=== PATIENT | male | born 1975 | race Caucasian/White ===

== ENCOUNTER 2025-05-08 17:19 | Inpatient (IN) | payer MEDICAID, OTHER ==
[~2025-05-08] VITALS: Ht 193 cm; Wt 159.1 kg
[~2025-05-08 17:19] MED LIST: BUSP10TA PO; HYDR50TA70 PO; LATU20TA PO; TRAZ-252 PO; ZOLO100T PO
[2025-05-08 18:11] LABS: PLATELET COUNT, AUTOMATED 282 10^3/uL (150-450)
[2025-05-08 18:28] LABS: ETHYL ALCOHOL (ETHANOL) < 0.003 % (0.000-0.010)
[2025-05-08 18:30] LABS: ALT/SGPT 21 U/L (7.0-40); AMPHETAMINES LEVEL URINE NEGATIVE (NEGATIVE); AST/SGOT 20 U/L (<34); BARBITURATES URINE NEGATIVE (NEGATIVE); BENZODIAZEPINES URINE NEGATIVE (NEGATIVE); CALCIUM LEVEL 9.3 MG/DL (8.5-10.1); CARBON DIOXIDE LEVEL 23 MMOL/L (20-31); CHLORIDE LEVEL 107 MMOL/L (98-107); COCAINE METABOLITE URINE NEGATIVE (NEGATIVE); CREATININE FOR GFR 0.96 MG/DL (0.70-1.30); GLOMERULAR FILTRATION RATE > 90.0 (>60); METHADONE URINE NEGATIVE (NEGATIVE); OPIATES URINE NEGATIVE (NEGATIVE); PHENCYCLIDINE URINE NEGATIVE (NEGATIVE); POTASSIUM SERUM 4.2 MMOL/L (3.5-5.1); SALICYLATE LEVEL < 3.0 MG/DL (<30); SODIUM LEVEL 142 MMOL/L (136-145)
[2025-05-08 18:43] LABS: CANNABINOIDS URINE POSITIVE (NEGATIVE)
[2025-05-08] MEDS ORDERED: BUSP10TA79 PO (21:08)
[2025-05-08] MEDS ORDERED: ZOLO100T PO (21:08)
[2025-05-08] MEDS ORDERED: HYDR50TA70 PO (21:08)
[2025-05-08] MEDS ORDERED: TRAZ-252 PO (21:08)
[2025-05-08] MEDS ORDERED: HOME MED LIST COMPLETE! XX SCH (21:10)
[2025-05-08] MEDS ORDERED: traZODone 50 MG TAB PO PRN (21:30)
[2025-05-08] MEDS ORDERED: MOM 30 ML SUSPENSION UDC PO PRN (21:30)
[2025-05-08] MEDS ORDERED: ACETAMINOPHEN 325 MG TAB PO PRN (21:30)
[2025-05-08] MEDS ORDERED: MAALOX 30 ML SUSP *UDC PO PRN (21:30)
[2025-05-08 23:37] VITALS: BP 134/88; TEMP 98; O2SAT 97
[2025-05-08] MEDS: traZODone 50 MG TAB PO SCH (23:48)
[2025-05-09 06:23] VITALS: BP 137/79; TEMP 97; O2SAT 96
[2025-05-09] MEDS: SERTRALINE HCL 50 MG TAB PO SCH (08:57)
[2025-05-09] MEDS: NICOTINE 21 MG/24 HR 1 EA TRANSDERMAL TD SCH (13:05)
[2025-05-09 15:41] VITALS: BP 125/71; TEMP 97.7; O2SAT 98
[2025-05-10 06:17] VITALS: BP 129/76; TEMP 98.2; O2SAT 94
[2025-05-10 07:34] LABS: CHOLESTEROL LEVEL 192.0 MG/DL (<200); CHOLESTEROL RISK RATIO 4.61 (<5); LDL CHOLESTEROL 121.4 MG/DL (<100); NON-HDL-C 150.4 MG/DL; TRIGLYCERIDES LEVEL 145.0 MG/DL (<150)
[2025-05-10 16:00] VITALS: BP 134/78; TEMP 97.8; O2SAT 97
[2025-05-11 06:32] VITALS: BP 128/72; O2SAT 95
[2025-05-11 09:33] VITALS: BP 128/72; TEMP 97.8; O2SAT 95
[2025-05-11] MEDS ORDERED: PILL CUTTER 1 EACH XX PRN (10:00)
[2025-05-11 15:34] VITALS: BP 137/75; TEMP 98.3; O2SAT 97
[2025-05-12 06:22] VITALS: BP 131/74; TEMP 97; O2SAT 94
[2025-05-12] MEDS: SERTRALINE HCL 50 MG TAB PO ONE (09:03)
[2025-05-12 15:53] VITALS: BP 132/71; TEMP 98.1; O2SAT 97
[2025-05-13 06:32] VITALS: BP 115/76; TEMP 97.7; O2SAT 96
[2025-05-13] MEDS: SERTRALINE 100 MG TAB PO SCH (08:19)
[2025-05-13 14:57] VITALS: BP 140/77; TEMP 98.3; O2SAT 98
[2025-05-14 06:34] VITALS: BP 114/70; TEMP 97.3; O2SAT 97
[2025-05-14 15:48] VITALS: BP 143/83; TEMP 97.6; O2SAT 98
[2025-05-15 06:31] VITALS: BP 113/69; TEMP 97; O2SAT 95
[2025-05-15] MEDS: ASCORBIC ACID 500 MG TAB PO SCH (12:57)
[2025-05-15] MEDS: MULTIVITAMINS/MINERALS THERAP 1 TAB PO SCH (12:57)
[2025-05-15 15:13] VITALS: BP 156/79; TEMP 97.6; O2SAT 100
[2025-05-16 06:43] VITALS: BP 111/58; TEMP 97.1; O2SAT 94
[2025-05-16] MEDS: IBUPROFEN 400 MG TAB PO PRN (11:24)
[2025-05-16 15:06] VITALS: BP 123/63; TEMP 98.6; O2SAT 96
[2025-05-17 06:36] VITALS: BP 158/80; TEMP 97.4; O2SAT 99
[2025-05-17 16:23] VITALS: BP 132/74; TEMP 97.2; O2SAT 96
[2025-05-18 06:22] VITALS: BP 129/83; TEMP 97.3; O2SAT 97
[2025-05-18 15:20] VITALS: BP 134/73; TEMP 97.8; O2SAT 99
[2025-05-19 06:42] VITALS: BP 138/90; TEMP 97.7; O2SAT 100
[2025-05-19 15:28] VITALS: BP 140/69; TEMP 98.1; O2SAT 98
[2025-05-20 01:55] VITALS: BP 154/84; TEMP 97.9; O2SAT 99
[2025-05-20 06:31] VITALS: BP 122/79; TEMP 97.4; O2SAT 99
[2025-05-20 15:17] VITALS: BP 140/67; TEMP 98.2; O2SAT 98
[2025-05-21 06:48] VITALS: BP 138/68; TEMP 97.5; O2SAT 97
[2025-05-21 15:00] VITALS: BP 135/78; TEMP 97.9; O2SAT 95
[2025-05-22 06:24] VITALS: BP 148/85; TEMP 97.6; O2SAT 98
[2025-05-22] MEDS ORDERED: BUSP10TA PO (08:48)
[2025-05-22] MEDS ORDERED: HYDR50TA70 PO (08:48)
[2025-05-22] MEDS ORDERED: SERT200C PO (08:48)
[2025-05-22] MEDS ORDERED: ARIP10TA63 PO (08:48)
[2025-05-23] MEDS ORDERED: HYDR50TA70 PO (15:51)
[2025-05-23] MEDS ORDERED: BUSP10TA PO (15:51)
[2025-05-23] MEDS ORDERED: ZOLO100T PO (15:51)
[2025-05-23] MEDS ORDERED: ABIL10TA9 PO (15:51)
== END 2025-05-22 10:15 | disposition home or self-care (01) | DRG 751 ==
LOC: M ED 17:19 → M ED INP 21:30 → M PSY 22:56
PROVIDERS: ADMIT Student in an Organized Health Care Education/Training Program; ATTEND Psychiatry & Neurology Psychiatry
DX: F33.1 Major depressive disorder, recurrent, moderate (principal); R45.851 Suicidal ideations; F41.1 Generalized anxiety disorder; Z56.0 Unemployment, unspecified; Z63.8 Other specified problems related to primary support group; Z81.8 Family history of other mental and behavioral disorders; Z79.899 Other long term (current) drug therapy; E66.9 Obesity, unspecified; Z87.891 Personal history of nicotine dependence

== ENCOUNTER 2025-05-29 11:55 | Inpatient (IN) | payer OTHER, MEDICAID ==
[~2025-05-29] VITALS: Ht 190.5 cm; Wt 176.4 kg
[~2025-05-29 11:55] MED LIST changes: +ABIL10TA9 PO; +ARIP10TA63 PO; +BUSP10TA79 PO; +SERT200C PO
[2025-05-29 12:46] LABS: PLATELET COUNT, AUTOMATED 330 10^3/uL (150-450)
[2025-05-29 13:08] LABS: ETHYL ALCOHOL (ETHANOL) < 0.003 % (0.000-0.010)
[2025-05-29 13:10] LABS: ALT/SGPT 26 U/L (7.0-40); AST/SGOT 19 U/L (<34); CALCIUM LEVEL 9.3 MG/DL (8.5-10.1); CARBON DIOXIDE LEVEL 22 MMOL/L (20-31); CHLORIDE LEVEL 106 MMOL/L (98-107); CREATININE FOR GFR 0.92 MG/DL (0.70-1.30); GLOMERULAR FILTRATION RATE > 90.0 (>60); POTASSIUM SERUM 4.5 MMOL/L (3.5-5.1); SALICYLATE LEVEL < 3.0 MG/DL (<30); SODIUM LEVEL 136 MMOL/L (136-145)
[2025-05-29] MEDS ORDERED: BUSP10TA PO (13:10)
[2025-05-29] MEDS ORDERED: HOME MED LIST COMPLETE! XX SCH (13:10)
[2025-05-29] MEDS ORDERED: ARIP1TAB PO (13:10)
[2025-05-29 13:42] LABS: AMPHETAMINES LEVEL URINE NEGATIVE (NEGATIVE); BARBITURATES URINE NEGATIVE (NEGATIVE); BENZODIAZEPINES URINE NEGATIVE (NEGATIVE); COCAINE METABOLITE URINE NEGATIVE (NEGATIVE); METHADONE URINE NEGATIVE (NEGATIVE); OPIATES URINE NEGATIVE (NEGATIVE)
[2025-05-29 13:43] LABS: PHENCYCLIDINE URINE NEGATIVE (NEGATIVE)
[2025-05-29 13:45] LABS: CANNABINOIDS URINE POSITIVE (NEGATIVE)
[2025-05-29] MEDS ORDERED: HALOPERIDOL 5 MG TAB PO PRN (16:10)
[2025-05-29] MEDS ORDERED: OLANZapine 5 MG TAB PO PRN (16:10)
[2025-05-29] MEDS ORDERED: MOM 30 ML SUSPENSION UDC PO PRN (16:10)
[2025-05-29] MEDS ORDERED: ACETAMINOPHEN 325 MG TAB PO PRN (16:10)
[2025-05-29 17:01] VITALS: BP 153/82; TEMP 97.2; O2SAT 98
[2025-05-29] MEDS: NICOTINE 14 MG/24 HR TRANSDERMAL TD SCH (17:20)
[2025-05-29] MEDS: traZODone 50 MG TAB PO PRN (20:16)
[2025-05-30 06:57] VITALS: BP 132/81; TEMP 97.2; O2SAT 98
[2025-05-30 06:59] VITALS: BP 118/59; TEMP 97.8; O2SAT 98
[2025-05-30] MEDS: SERTRALINE 100 MG TAB PO SCH (08:17)
[2025-05-30] MEDS: buPROPion **XL** 150 MG TABLET PO SCH (14:42)
[2025-05-30] MEDS: NICOTINE 21 MG/24 HR 1 EA TRANSDERMAL TD SCH (14:43)
[2025-05-30 14:54] VITALS: BP 135/64; TEMP 97; O2SAT 98
[2025-05-30] MEDS: traZODone 50 MG TAB PO SCH (20:34)
[2025-05-31 06:26] VITALS: BP 108/56; TEMP 97.8; O2SAT 97
[2025-05-31] MEDS: IBUPROFEN 400 MG TAB PO PRN (14:21)
[2025-05-31] MEDS: VANICREAM MOISTURIZING SKIN CREAM 113GM TUBE TOP SCH (15:13)
[2025-05-31 15:37] VITALS: BP 129/69; TEMP 98.7; O2SAT 97
[2025-06-01 06:47] VITALS: BP 131/75; TEMP 97; O2SAT 96
[2025-06-01 15:31] VITALS: BP 137/73; TEMP 98.2; O2SAT 98
[2025-06-01] MEDS: LORazepam 1 MG TAB PO PRN (20:39)
[2025-06-02 06:46] VITALS: BP 138/77; TEMP 97.5; O2SAT 95
[2025-06-02 15:05] VITALS: BP 136/69; TEMP 98; O2SAT 97
[2025-06-03 06:57] VITALS: BP 128/72; TEMP 97.4; O2SAT 98
[2025-06-03 15:19] VITALS: BP 121/66; TEMP 98.2; O2SAT 98
[2025-06-04 06:26] VITALS: BP 134/85; TEMP 97.3; O2SAT 95
[2025-06-04] MEDS ORDERED: SERTRALINE HCL 50 MG TAB PO ONE (09:20)
[2025-06-04] MEDS: buPROPion **XL** 150 MG TABLET PO SCH (09:27)
[2025-06-04] MEDS: SERTRALINE 100 MG TAB PO SCH (09:27)
[2025-06-04 15:43] VITALS: BP 138/71; TEMP 97.6; O2SAT 96
[2025-06-05 06:26] VITALS: BP 141/81; TEMP 97.7; O2SAT 95
[2025-06-05 19:00] VITALS: BP 144/76; TEMP 97.4; O2SAT 98
[2025-06-06 06:45] VITALS: BP 102/60; TEMP 98; O2SAT 96
[2025-06-06] MEDS: PILL CUTTER 1 EACH XX PRN (08:32)
[2025-06-06 15:26] VITALS: BP 135/70; TEMP 98; O2SAT 96
[2025-06-07 06:44] VITALS: BP 154/83; TEMP 97.6; O2SAT 95
[2025-06-07 15:55] VITALS: BP 148/76; TEMP 97.8; O2SAT 97
[2025-06-08 06:23] VITALS: BP 145/80; TEMP 97.9; O2SAT 97
[2025-06-08 15:24] VITALS: BP 134/67; TEMP 98.3; O2SAT 98
[2025-06-08] MEDS: MAALOX 30 ML SUSP *UDC PO PRN (17:09)
[2025-06-09 06:20] VITALS: BP 161/91; TEMP 98.3; O2SAT 95
[2025-06-09 15:48] VITALS: BP 136/74; TEMP 98.2; O2SAT 97
[2025-06-10 06:13] VITALS: BP 155/87; TEMP 97.6; O2SAT 98
[2025-06-10] MEDS ORDERED: ABIL10TA9 PO (13:27)
[2025-06-10] MEDS ORDERED: BUPR150T12 PO (13:27)
[2025-06-10] MEDS ORDERED: ZOLO100T PO (13:27)
[2025-06-10] MEDS ORDERED: BUSP10TA PO (13:27)
[2025-06-10] MEDS ORDERED: TRAZ-252 PO (13:27)
[2025-06-10] MEDS ORDERED: ZOLO50TA PO (14:04)
[2025-06-10 15:36] VITALS: BP 143/68; TEMP 98.4; O2SAT 97
[2025-06-11 06:23] VITALS: BP 154/96; TEMP 97.1; O2SAT 93
[2025-06-13] MEDS ORDERED: TRAZ1TAB14 PO (12:24)
== END 2025-06-11 13:22 | disposition home or self-care (01) | DRG 751 ==
LOC: M ED 11:55 → M ED INP 16:09 → M PSY 16:45
PROVIDERS: ADMIT Internal Medicine; ATTEND Internal Medicine
DX: F33.1 Major depressive disorder, recurrent, moderate (principal); R45.851 Suicidal ideations; F41.1 Generalized anxiety disorder; F41.0 Panic disorder [episodic paroxysmal anxiety]; F90.9 Attention-deficit hyperactivity disorder, unspecified type; E66.01 Morbid (severe) obesity due to excess calories; L40.9 Psoriasis, unspecified; F17.210 Nicotine dependence, cigarettes, uncomplicated; Z91.52 Personal history of nonsuicidal self-harm; Z81.1 Family history of alcohol abuse and dependence; Z79.899 Other long term (current) drug therapy; Z81.8 Family history of other mental and behavioral disorders; Z83.3 Family history of diabetes mellitus; Z68.42 Body mass index [BMI] 45.0-49.9, adult